=== PATIENT | male | born 1990 | race Caucasian/White ===

== ENCOUNTER 2016-07-30 20:33 | Emergency (ER) | payer MEDICAID, OTHER ==
[~2016-07-30] VITALS: Ht 167.6 cm; Wt 81.6 kg
[~2016-07-30 20:33] MED LIST: ALBU-136 IH
[2016-07-30 20:46] VITALS: BP 155/109
--- NOTE | 2016-07-30 21:39 | NUR ---
PT TAKEN TO OF
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
--- NOTE | 2016-07-30 21:39 | NUR ---
Dr. Chapman evaluating patient
--- NOTE | 2016-07-30 21:43 | NUR ---
PT TAKEN TO XRAY
[2016-07-30] MEDS ORDERED: KETOROLAC 30 MG/ML VIAL IM ONE (21:45)
--- NOTE | 2016-07-30 21:55 | NUR ---
PT TAKEN TO BED 7
[2016-07-30] MEDS ORDERED: ALBUTEROL SULFATE/IPRATROPIU 3 ML SOL IH ONE ×2 (22:10→22:30)
--- NOTE | 2016-07-30 22:15 | NUR ---
Respiratory Therapist at bedside for respiratory intervention
[2016-07-30] MEDS ORDERED: predniSONE 20 MG TAB PO ONE (22:30)
--- NOTE | 2016-07-30 22:32 | NUR ---
Ultrasound at bedside.
--- NOTE | 2016-07-30 22:36 | NUR ---
X-Ray at bedside.
[2016-07-30 23:14] VITALS: BP 120/89
--- NOTE | 2016-07-30 23:14 | NUR ---
Patient discharged with v/s stable. Written and verbal after care instructions given and explained. Patient alert, oriented and verbalized understanding of instructions. Ambulatory with steady gait. All questions addressed prior to discharge. ID band removed. Patient advised to follow up with PMD THIS WK OR RETURN TO ER IF CONDITION WORSENS. Rx of ALBUTEROL, NAPROSYN, PREDNISONE, KEFLEX, AND TYLENOL WITH CODEINE given. Patient educated on indication of medication including possible reaction and side effects. Opportunity to ask questions provided and answered.
== END 2016-07-30 23:14 | disposition home or self-care (01) ==
LOC: MED 20:33
DX: S83.92XA Sprain of unspecified site of left knee, initial encounter (principal); L03.113 Cellulitis of right upper limb; J45.901 Unspecified asthma with (acute) exacerbation; X58.XXXA Exposure to other specified factors, initial encounter; Y93.72 Activity, wrestling; Y92.89 Other specified places as the place of occurrence of the external cause; Y99.8 Other external cause status
CPT/HCPCS: 29505; 73562; 73610; 93971; 94640; 96372; 99285; J1885; J7512; J7620; Q0092

== ENCOUNTER 2016-10-21 14:48 | Emergency (ER) | payer OTHER ==
[~2016-10-21] VITALS: Ht 165.1 cm; Wt 75.8 kg
[2016-10-21 14:54] VITALS: BP 151/78
--- NOTE | 2016-10-21 19:08 | NUR ---
PATIENT LEFT WITHOUT BEING SEEN BY DR. WRAY. NO FURTHER CARE PROVIDED FOR PATIENT.
== END 2016-10-21 19:08 | disposition left against medical advice (07) ==
LOC: MED 14:48
DX: R21 Rash and other nonspecific skin eruption (principal); J44.9 Chronic obstructive pulmonary disease, unspecified; Z53.21 Procedure and treatment not carried out due to patient leaving prior to being seen by health care provider

== ENCOUNTER 2019-10-15 09:55 | Emergency (ER) | payer OTHER ==
[~2019-10-15] VITALS: Ht 175.3 cm; Wt 89.8 kg
[2019-10-15] MEDS ORDERED: ALBUTEROL SULFATE/IPRATROPIU 3 ML SOL IH ONE ×2 (10:15→10:40)
--- NOTE | 2019-10-15 10:30 | NUR ---
BREATHING TREATMENT DONE AT BEDSIDE
[2019-10-15 10:31] VITALS: BP 106/75
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
[2019-10-15] MEDS ORDERED: DEXAMETHASONE 10 MG/ML VIAL IVP ONE (10:40)
[2019-10-15] MEDS ORDERED: HYDROcodone/APAP 10/325 MG 1 TAB TAB PO ONE (10:45)
[2019-10-15] MEDS ORDERED: ALPRAZolam 0.5 MG TAB PO ONE (11:50)
[2019-10-15 12:45] VITALS: BP 101/67
--- NOTE | 2019-10-15 12:45 | NUR ---
Patient discharged with v/s stable. Written and verbal after care instructions given and explained. Patient alert, oriented and verbalized understanding of instructions. Ambulatory with steady gait. All questions addressed prior to discharge. ID band removed. Patient advised to follow up with PMD. Rx of aerochamber, albuterl,azithromycin,QVAR given. Patient educated on indication of medication including possible reaction and side effects. Opportunity to ask questions provided and answered.
== END 2019-10-15 12:45 | disposition home or self-care (01) ==
LOC: MED 09:55
DX: J45.901 Unspecified asthma with (acute) exacerbation (principal); F41.9 Anxiety disorder, unspecified
CPT/HCPCS: 71045; 94640; 96374; 99284; J1100; Q0092

== ENCOUNTER 2020-09-29 14:15 | Inpatient (IN) | payer OTHER, SELFPAY ==
[~2020-09-29] VITALS: Ht 170.2 cm; Wt 81.6 kg
[~2020-09-29 14:15] MED LIST changes: +ALBU-118 IH; -ALBU-136 IH; +ALBU0.0912 INH; +LEVO500T98 PO; +PRED20TA5 PO
[2020-09-29 14:19] VITALS: BP 144/96
[2020-09-29] MEDS ORDERED: ALBUTEROL SULFATE/IPRATROPIU 3 ML SOL IH ONE (14:20)
[2020-09-29] MEDS ORDERED: methylPREDNISolone SS 125 MG/2 ML VIAL IVP ONE (14:20)
[2020-09-29 15:00] LABS: BASOPHILS # (AUTO) 0.1 K/uL (0.00-0.22); BASOPHILS % (AUTO) 0.8 % (0.0-2.0); EOSINOPHILS % (AUTO) 0.2 % (0.0-4.0); HEMATOCRIT 51.7 % (36-52); HEMOGLOBIN 16.8 g/dL (12.0-18.0); LYMPHOCYTES # (AUTO) 1.1 K/uL (2.0-11.5); LYMPHOCYTES % (AUTO) 10.8 % (20.5-51.1); MEAN CORPUSCULAR HEMOGLOBIN 30 pg (27-31); MEAN CORPUSCULAR HGB CONC 32 g/dL (33-37); MEAN CORPUSCULAR VOLUME 91.5 fL (80-94); MONOCYTES # (AUTO) 0.5 K/uL (0.8-1.0); MONOCYTES % (AUTO) 4.5 % (1.7-9.3); NEUTROPHILS # (AUTO) 8.5 K/uL (1.8-7.7); NEUTROPHILS % (AUTO) 83.7 % (42.2-75.2); PLATELET COUNT (AUTO) 136 K/uL (140-450); RED BLOOD CELL COUNT(AUTO) 5.65 MIL/uL (4.20-6.10); RED CELL DISTRIBUTION WIDTH 16.2 % (11.6-13.7); WHITE BLOOD COUNT (AUTO) 10.2 K/uL (4.8-10.8)
[2020-09-29 15:13] LABS: ALBUMIN 3.7 g/dL (3.4-5.0); ANION GAP 8.2 (8-16); CREATININE 1.9 mg/dL (0.6-1.3); POTASSIUM 4.2 mmol/L (3.5-5.1); TOTAL BILIRUBIN 0.6 mg/dL (0.0-1.0)
[2020-09-29] MEDS ORDERED: MAG SULF 2000 MG/WATER PREMIX 50 ML IV ONE (15:50)
[2020-09-29] MEDS ORDERED: NACL 0.9% 500 ML IV ONE (16:15)
[2020-09-29] MEDS ORDERED: ASPIRIN 81 MG TAB.CHEW PO SCH (16:25)
[2020-09-29] MEDS ORDERED: LORazepam 2 MG/ML VIAL IVP PRN (17:20)
[2020-09-29] MEDS ORDERED: MORPHINE SULFATE 2 MG/ML SYR IVP PRN (17:20)
[2020-09-29] MEDS ORDERED: HYDROcodone/APAP 5/325 MG 1 TAB TAB PO PRN (17:20)
[2020-09-29] MEDS ORDERED: ONDANSETRON 4 MG/2 ML VIAL IVP PRN (17:20)
[2020-09-29] MEDS ORDERED: NITROGLYCERIN 0.4 MG TAB SL PRN (17:20)
[2020-09-29] MEDS ORDERED: ACETAMINOPHEN 325 MG TAB PO PRN (17:20)
[2020-09-29] MEDS ORDERED: ZOLPIDEM 5 MG TAB PO PRN (17:20)
[2020-09-29 18:03] VITALS: BP 137/66
[2020-09-29 18:06] LABS: CREATINE KINASE MB 10.9 ng/mL (0-3.6)
[2020-09-29 18:31] LABS: BARBITURATE, URINE NEGATIVE ng/ml (NEG <=200); BENZODIAZEPINE, URINE POSITIVE ng/mL (NEG <=200); CANNABINOID, URINE NEGATIVE ng/mL (NEG <=50); COCAINE, URINE NEGATIVE ng/mL (NEG <=300); OPIATE, URINE NEGATIVE ng/mL (NEG <=2000); PHENCYCLIDINE SCREEN,URINE NEGATIVE ng/mL (NEG <=25)
[2020-09-29] MEDS: SIMVASTATIN 20 MG TAB PO SCH (20:23)
[2020-09-29] MEDS: METOPROLOL 25 MG TAB PO SCH (20:23)
[2020-09-30] VITALS: BP 130/77
[2020-09-30 03:04] LABS: CREATINE KINASE MB 15.8 ng/mL (0-3.6)
[2020-09-30 04:00] VITALS: BP 122/68
[2020-09-30 06:16] LABS: BASOPHILS % (AUTO) 0.1 % (0.0-2.0); HEMATOCRIT 50.4 % (36-52); LYMPHOCYTES % (AUTO) 7.8 % (20.5-51.1); MEAN CORPUSCULAR HEMOGLOBIN 30 pg (27-31); MEAN CORPUSCULAR HGB CONC 32 g/dL (33-37); MEAN CORPUSCULAR VOLUME 92.8 fL (80-94); MONOCYTES # (AUTO) 0.6 K/uL (0.8-1.0); MONOCYTES % (AUTO) 4.8 % (1.7-9.3); NEUTROPHILS # (AUTO) 11.6 K/uL (1.8-7.7); NEUTROPHILS % (AUTO) 87.3 % (42.2-75.2); PLATELET COUNT (AUTO) 138 K/uL (140-450); RED BLOOD CELL COUNT(AUTO) 5.43 MIL/uL (4.20-6.10); WHITE BLOOD COUNT (AUTO) 13.3 K/uL (4.8-10.8)
[2020-09-30 06:31] LABS: ALBUMIN 3.6 g/dL (3.4-5.0); ANION GAP 5.8 (8-16); CARBON DIOXIDE 35.2 mmol/L (21-32); CREATININE 1.4 mg/dL (0.6-1.3); MAGNESIUM 2.5 mg/dL (1.8-2.4); TOTAL BILIRUBIN 0.6 mg/dL (0.0-1.0)
[2020-09-30 08:00] VITALS: BP 129/75
[2020-09-30] MEDS: lisinopriL 10 MG TAB PO SCH (09:34)
[2020-09-30] MEDS: METOPROLOL 25 MG TAB PO SCH ×2 (09:34→20:40)
[2020-09-30] MEDS: DOCUSATE SODIUM 100 MG GELCAP PO SCH (09:35)
[2020-09-30] MEDS: ASPIRIN 81 MG TAB.CHEW PO SCH (09:35)
[2020-09-30] MEDS: ENOXAPARIN 40 MG/0.4 ML SYR SUBQ SCH (09:36)
[2020-09-30 12:00] VITALS: BP 130/67
[2020-09-30] MEDS ORDERED: ALBUTEROL SULFATE/IPRATROPIU 3 ML SOL IH PRN (13:45)
[2020-09-30 16:00] VITALS: BP 135/72
[2020-09-30] MEDS ORDERED: FUROSEMIDE 40 MG/4 ML VIAL IVP ONE (17:05)
[2020-09-30] MEDS: ALBUTEROL SULFATE/IPRATROPIU 3 ML SOL IH SCH (19:10)
[2020-09-30 20:00] VITALS: BP 124/67
[2020-09-30] MEDS: FAMOTIDINE 20 MG TAB PO SCH (20:40)
[2020-09-30] MEDS: SIMVASTATIN 20 MG TAB PO SCH (20:40)
[2020-09-30] MEDS: NAPROXEN 500 MG TAB PO SCH (20:41)
[2020-09-30] MEDS ORDERED: NAPROXEN 375 MG TAB PO SCH (21:00)
[2020-10-01] VITALS (7 sets, daily range): BP systolic 107–153; BP diastolic 60–95
[2020-10-01] MEDS: ALBUTEROL SULFATE/IPRATROPIU 3 ML SOL IH SCH ×4 (01:53→19:29)
[2020-10-01] MEDS ORDERED: predniSONE 20 MG TAB PO SCH (09:00)
[2020-10-01] MEDS: ENOXAPARIN 40 MG/0.4 ML SYR SUBQ SCH (09:37)
[2020-10-01] MEDS: DOCUSATE SODIUM 100 MG GELCAP PO SCH (09:39)
[2020-10-01] MEDS: lisinopriL 10 MG TAB PO SCH (09:43)
[2020-10-01] MEDS: ASPIRIN 81 MG TAB.CHEW PO SCH (09:44)
[2020-10-01] MEDS: FAMOTIDINE 20 MG TAB PO SCH ×2 (09:44→21:22)
[2020-10-01] MEDS: METOPROLOL 25 MG TAB PO SCH ×2 (09:44→21:22)
[2020-10-01] MEDS: NAPROXEN 500 MG TAB PO SCH ×2 (09:45→21:22)
[2020-10-01] MEDS ORDERED: FAMO20TA13 PO (18:33)
[2020-10-01] MEDS ORDERED: LOV40I SUBQ (18:33)
[2020-10-01] MEDS ORDERED: LISI10TA30 PO (18:33)
[2020-10-01] MEDS ORDERED: NITR0.4T1 SL (18:33)
[2020-10-01] MEDS ORDERED: SIMV-30 PO (18:33)
[2020-10-01] MEDS ORDERED: METO25TA PO (18:33)
[2020-10-01] MEDS: SIMVASTATIN 20 MG TAB PO SCH (21:22)
== END 2020-10-01 22:30 | disposition short-term general hospital (02) | DRG 141 ==
LOC: MED 14:15 → MTU 17:22 → OBSVTOIN 10-01 12:31
PROVIDERS: ADMIT Hospitalist; ATTEND Hospitalist
DX: J45.901 Unspecified asthma with (acute) exacerbation (principal); I21.A1 Myocardial infarction type 2; J96.01 Acute respiratory failure with hypoxia; J96.02 Acute respiratory failure with hypercapnia; J44.1 Chronic obstructive pulmonary disease with (acute) exacerbation; I07.1 Rheumatic tricuspid insufficiency; I27.21 Secondary pulmonary arterial hypertension; E66.9 Obesity, unspecified; F17.210 Nicotine dependence, cigarettes, uncomplicated; Z20.822 Contact with and (suspected) exposure to COVID-19; G47.30 Sleep apnea, unspecified; Z79.899 Other long term (current) drug therapy; Z71.6 Tobacco abuse counseling; Z68.28 Body mass index [BMI] 28.0-28.9, adult; Z59.0 Homelessness
CPT/HCPCS: 96365; 96366; 96375; 99291; G0378; 36415; 36600; 71045; 73660; 80053; 80305; 82550; 82553; 82803; 83735; 83880; 84484; 85025; 85379; 87081; 93005; 94640; J1650; J1940; J2930; J3475; J7512

== ENCOUNTER 2022-11-22 11:32 | Inpatient (IN) | payer MEDICAID, OTHER ==
[~2022-11-22] VITALS: Ht 177.8 cm; Wt 82.6 kg
[2022-11-22] VITALS (8 sets, daily range): BP systolic 100–122; BP diastolic 60–65; PULSE 65–89; RESP 16–26; TEMP 98.2–98.3; O2SAT 84–98
[~2022-11-22 11:32] MED LIST changes: +BECL10.62 INH; +FAMO20TA13 PO; +LEVO-481 PO; -LEVO500T98 PO; +LISI10TA30 PO; +LOV40I SUBQ; +METO25TA PO; +NICO21TD TD; +SILD20TA PO; +SIMV-30 PO
[2022-11-22] MEDS ORDERED: IPRATROPIUM 0.02% 0.5 MG/2.5 ML NEBU INH ONE (11:45)
[2022-11-22] MEDS ORDERED: ALBUTEROL 0.083% 2.5 MG/3 ML NEBU INH ONE (11:45)
[2022-11-22] MEDS ORDERED: methylPREDNISolone SS 125 MG/2 ML VIAL IVP ONE (11:50)
[2022-11-22] MEDS ORDERED: NACL 0.9% 1,000 ML IV ONE (11:50)
[2022-11-22 12:09] LABS: BASOPHILS % (AUTO) 0.3 % (0.0-2.0); EOSINOPHILS # (AUTO) 0.7 K/uL (0-0.4); EOSINOPHILS % (AUTO) 10.4 % (0.0-4.0); HEMATOCRIT 47.6 % (36-52); HEMOGLOBIN 15.6 g/dL (12.0-18.0); LYMPHOCYTES # (AUTO) 1.9 K/uL (2.0-11.5); LYMPHOCYTES % (AUTO) 26.5 % (20.5-51.1); MEAN CORPUSCULAR HEMOGLOBIN 29 pg (27-31); MEAN CORPUSCULAR HGB CONC 33 g/dL (33-37); MEAN CORPUSCULAR VOLUME 87.4 fL (80-94); MONOCYTES # (AUTO) 0.6 K/uL (0.8-1.0); MONOCYTES % (AUTO) 8.3 % (1.7-9.3); NEUTROPHILS # (AUTO) 3.8 K/uL (1.8-7.7); NEUTROPHILS % (AUTO) 54.5 % (42.2-75.2); PLATELET COUNT (AUTO) 229 K/uL (140-450); RED BLOOD CELL COUNT(AUTO) 5.45 MIL/uL (4.20-6.10); RED CELL DISTRIBUTION WIDTH 18.1 % (11.6-13.7)
[2022-11-22] MEDS ORDERED: AZITHROMYCIN 500 MG in DEXTROSE 5% 250 ML IV ONE (12:35)
[2022-11-22] MEDS ORDERED: ALBUTEROL SULFATE/IPRATROPIU 3 ML SOL IH ONE (12:35)
[2022-11-22 12:38] LABS: ALBUMIN 3.2 g/dL (3.4-5.0); ANION GAP 7.9 (8-16); CALCIUM 8.7 mg/dL (8.5-10.1); CARBON DIOXIDE 35.9 mmol/L (21-32); CREATININE 1.1 mg/dL (0.6-1.3); POTASSIUM 3.8 mmol/L (3.5-5.1); TOTAL BILIRUBIN 0.4 mg/dL (0.0-1.0); TOTAL PROTEIN, SERUM 7.7 g/dL (6.4-8.2)
[2022-11-22] MEDS ORDERED: AZITHROMYCIN 500 MG INJ VIAL IV ONE (14:29)
[2022-11-22] MEDS ORDERED: cefTRIAXone 1,000 MG VIAL ONE (14:29)
[2022-11-22] MEDS ORDERED: MORPHINE SULFATE 2 MG/ML SYR IVP PRN (15:25)
[2022-11-22] MEDS ORDERED: NITROGLYCERIN 0.4 MG TAB SL PRN (15:25)
[2022-11-22 15:34] LABS: FLU A ANTIGEN negative (NEGATIVE); FLU B ANTIGEN NEGATIVE (NEGATIVE)
[2022-11-22] MEDS ORDERED: ALBUTEROL SULFATE/IPRATROPIU 3 ML SOL IH PRN (17:05)
[2022-11-22] MEDS ORDERED: methylPREDNISolone SS 125 MG/2 ML VIAL IVP SCH (17:05)
[2022-11-22] MEDS ORDERED: MAG SULF 2000 MG/WATER PREMIX 50 ML IV PRN (17:10)
[2022-11-22] MEDS ORDERED: POTASSIUM CHLORIDE 10 MEQ TABER PO PRN (17:10)
[2022-11-22] MEDS ORDERED: HYDROcodone/APAP 7.5/325 MG 1 TAB PO PRN (17:15)
[2022-11-22] MEDS ORDERED: ONDANSETRON 4 MG/2 ML VIAL IVP PRN (17:15)
[2022-11-22] MEDS ORDERED: ACETAMINOPHEN 325 MG TAB PO PRN (17:15)
[2022-11-22 17:36] LABS: INR 0.99 (0.8-1.2); PARTIAL THROMBOPLASTIN TIME 28.3 secs (22-35.6); PROTHROMBIN TIME 10.4 secs (10.8-13.4)
[2022-11-22 17:45] LABS: LACTIC ACID 1.4 mmol/L (0.4-2.0)
[2022-11-22] MEDS ORDERED: ALBUTEROL 0.083% 2.5 MG/3 ML NEBU INH PRN (17:55)
[2022-11-22 18:46] LABS: CHOL/HDL RATIO 3.7 (1-4.5); FREE T4 (FREE THYROXINE) 1.1 ng/dL (0.76-1.46); THYROID STIMULATING HORMONE 0.78 uIU/mL (0.34-3.74)
[2022-11-22] MEDS: ALBUTEROL SULFATE/IPRATROPIU 3 ML SOL IH SCH (18:46)
[2022-11-22] MEDS ORDERED: IPRATROPIUM 0.02% 0.5 MG/2.5 ML NEBU INH SCH (19:00)
[2022-11-22] MEDS ORDERED: MORPHINE SULFATE 4 MG/ML SYR IVP PRN (19:45)
[2022-11-22] MEDS ORDERED: FAMOTIDINE 20 MG TAB PO SCH (21:00)
[2022-11-22] MEDS ORDERED: SIMVASTATIN 20 MG TAB PO SCH (21:00)
[2022-11-22] MEDS ORDERED: PIPERACILLIN/TAZOBACTAM 3.375 GM VIAL IV ONE (21:57)
[2022-11-22] MEDS: PIPERACILLIN/TAZOBACTAM 3.375 GM in DEXTROSE 5% 50 ML IV SCH (22:05)
[2022-11-22] MEDS: NACL 0.9% 1,000 ML IV SCH (22:05)
[2022-11-22] MEDS: methylPREDNISolone SS 125 MG/2 ML VIAL IVP SCH (22:06)
[2022-11-22] MEDS ORDERED: MELATONIN 3 MG TAB PO PRN ×2 (22:20→22:45)
[2022-11-22] MEDS: METOPROLOL 25 MG TAB PO SCH (22:20)
[2022-11-22] MEDS: DOCUSATE SODIUM 100 MG GELCAP PO SCH (23:40)
[2022-11-23] VITALS (9 sets, daily range): BP systolic 96–99; BP diastolic 40–61; PULSE 46–80; RESP 16–20; TEMP 96.6–98.6; O2SAT 93–100
[2022-11-23 03:00] LABS: APPEARANCE,URINE CLEAR (CLEAR); BILIRUBIN,URINE NEGATIVE (NEGATIVE); BLOOD, URINE NEGATIVE (NEGATIVE); COLOR,URINE YELLOW (YELLOW); LEUKOCYTE ESTERASE ,URINE NEGATIVE (NEGATIVE); NITRITE, URINE NEGATIVE (NEGATIVE); PROTEIN,URINE NEGATIVE (NEGATIVE); UGLUCOSE TRACE (NEGATIVE); UROBILINOGEN,URINE 0.2 EU/dL (0.2 - 1)
[2022-11-23 04:42] LABS: AMPHETAMINE, URINE NEGATIVE ng/ml (NEG <=1000); BARBITURATE, URINE NEGATIVE ng/ml (NEG <=200); BENZODIAZEPINE, URINE POSITIVE ng/mL (NEG <=200); CANNABINOID, URINE NEGATIVE ng/mL (NEG <=50); COCAINE, URINE NEGATIVE ng/mL (NEG <=300); OPIATE, URINE POSITIVE ng/mL (NEG <=2000); PHENCYCLIDINE SCREEN,URINE NEGATIVE ng/mL (NEG <=25)
[2022-11-23] MEDS ORDERED: PIPERACILLIN/TAZOBACTAM 3.375 GM VIAL IV ONE (05:29)
[2022-11-23] MEDS: NACL 0.9% 1,000 ML IV SCH ×2 (05:32→15:32)
[2022-11-23] MEDS: PIPERACILLIN/TAZOBACTAM 3.375 GM in DEXTROSE 5% 50 ML IV SCH ×2 (05:44→14:13)
[2022-11-23] MEDS: methylPREDNISolone SS 125 MG/2 ML VIAL IVP SCH ×2 (05:44→15:01)
[2022-11-23] MEDS ORDERED: KETOROLAC 15 MG/ML VIAL IM PRN (05:55)
[2022-11-23 06:25] LABS: BASOPHILS % (AUTO) 0.1 % (0.0-2.0); HEMATOCRIT 43.4 % (36-52); HEMOGLOBIN 14.1 g/dL (12.0-18.0); LYMPHOCYTES # (AUTO) 0.8 K/uL (2.0-11.5); LYMPHOCYTES % (AUTO) 6.4 % (20.5-51.1); MEAN CORPUSCULAR HEMOGLOBIN 28 pg (27-31); MEAN CORPUSCULAR HGB CONC 33 g/dL (33-37); MEAN CORPUSCULAR VOLUME 86.9 fL (80-94); MONOCYTES # (AUTO) 0.2 K/uL (0.8-1.0); MONOCYTES % (AUTO) 1.6 % (1.7-9.3); NEUTROPHILS % (AUTO) 91.9 % (42.2-75.2); PLATELET COUNT (AUTO) 196 K/uL (140-450); RED CELL DISTRIBUTION WIDTH 17.8 % (11.6-13.7); WHITE BLOOD COUNT (AUTO) 13.1 K/uL (4.8-10.8)
[2022-11-23 06:26] LABS: PHOSPHORUS 1.7 mg/dL (2.5-4.9)
[2022-11-23 06:31] LABS: ANION GAP 11.1 (8-16); CALCIUM 8.8 mg/dL (8.5-10.1); CARBON DIOXIDE 32.4 mmol/L (21-32); POTASSIUM 4.5 mmol/L (3.5-5.1)
[2022-11-23] MEDS: ALBUTEROL SULFATE/IPRATROPIU 3 ML SOL IH SCH ×2 (07:00→12:39)
[2022-11-23] MEDS ORDERED: PANTOPRAZOLE 40 MG INJ VIAL IVP SCH (09:00)
[2022-11-23] MEDS: DOCUSATE SODIUM 100 MG GELCAP PO SCH (09:00)
[2022-11-23] MEDS: METOPROLOL 25 MG TAB PO SCH (09:00)
[2022-11-23] MEDS ORDERED: lisinopriL 10 MG TAB PO SCH (09:00)
[2022-11-23] MEDS: SILDENAFIL 20 MG TAB PO SCH ×3 (09:00→17:00)
[2022-11-23] MEDS ORDERED: LEVO750T75 PO (17:31)
[2022-11-23] MEDS ORDERED: methylPREDNISolone SS 40 MG/ML VIAL IVP SCH (21:00)
== END 2022-11-23 18:19 | disposition home or self-care (01) | DRG 139 ==
LOC: MED 11:32 → MTU 14:05
DX: J18.9 Pneumonia, unspecified organism (principal); J96.01 Acute respiratory failure with hypoxia; E44.1 Mild protein-calorie malnutrition; J45.901 Unspecified asthma with (acute) exacerbation; I27.20 Pulmonary hypertension, unspecified; B36.0 Pityriasis versicolor; G89.29 Other chronic pain; Z20.822 Contact with and (suspected) exposure to COVID-19; M54.50 Low back pain, unspecified; F11.90 Opioid use, unspecified, uncomplicated; E66.9 Obesity, unspecified; F17.210 Nicotine dependence, cigarettes, uncomplicated; Z88.8 Allergy status to other drugs, medicaments and biological substances; Z79.899 Other long term (current) drug therapy; Z68.26 Body mass index [BMI] 26.0-26.9, adult
CPT/HCPCS: 36415; 71045; 80048; 80053; 80305; 81003; 82140; 82150; 83036; 83605; 83690; 83735; 83880; 84100; 84439; 84443; 84484; 85025; 85610; 85730; 87040; 87081; 87086; 93005; 94640; 96374; 96375; 99291; C9113; J0456; J0696; J1644; J1885; J2270; J2543; J2930; J7060; J7613; J7644

== ENCOUNTER 2022-12-26 12:10 | Inpatient (IN) | payer MEDICAID ==
[~2022-12-26] VITALS: Ht 170.2 cm; Wt 81.6 kg
[2022-12-26] VITALS (8 sets, daily range): BP systolic 101–112; BP diastolic 65–84; PULSE 60–94; RESP 18–20; TEMP 96.9–98.4; O2SAT 88–99
[~2022-12-26 12:10] MED LIST changes: +LEVO750T75 PO
[2022-12-26] MEDS ORDERED: ALBUTEROL SULFATE/IPRATROPIU 3 ML SOL IH ONE (12:30)
[2022-12-26] MEDS ORDERED: IPRATROPIUM 0.02% 0.5 MG/2.5 ML NEBU INH ONE (12:30)
[2022-12-26] MEDS ORDERED: ALBUTEROL 0.083% 2.5 MG/3 ML NEBU INH ONE (12:30)
[2022-12-26] MEDS ORDERED: predniSONE 20 MG TAB PO ONE (13:05)
[2022-12-26 13:40] LABS: BASOPHILS # (AUTO) 0.1 K/uL (0.00-0.22); BASOPHILS % (AUTO) 0.7 % (0.0-2.0); EOSINOPHILS # (AUTO) 0.3 K/uL (0-0.4); EOSINOPHILS % (AUTO) 2.5 % (0.0-4.0); HEMATOCRIT 48.8 % (36-52); LYMPHOCYTES % (AUTO) 22.6 % (20.5-51.1); MEAN CORPUSCULAR HEMOGLOBIN 29 pg (27-31); MEAN CORPUSCULAR HGB CONC 33 g/dL (33-37); MEAN CORPUSCULAR VOLUME 89.3 fL (80-94); MONOCYTES # (AUTO) 0.9 K/uL (0.8-1.0); MONOCYTES % (AUTO) 7.2 % (1.7-9.3); NEUTROPHILS # (AUTO) 8.8 K/uL (1.8-7.7); PLATELET COUNT (AUTO) 230 K/uL (140-450); RED BLOOD CELL COUNT(AUTO) 5.47 MIL/uL (4.20-6.10); RED CELL DISTRIBUTION WIDTH 15.2 % (11.6-13.7); WHITE BLOOD COUNT (AUTO) 13.1 K/uL (4.8-10.8)
[2022-12-26 13:50] LABS: ANION GAP 8.3 (8-16); CARBON DIOXIDE 35.4 mmol/L (21-32); POTASSIUM 3.7 mmol/L (3.5-5.1)
[2022-12-26] MEDS ORDERED: AZITHROMYCIN 500 MG in DEXTROSE 5% 250 ML IV ONE (14:20)
[2022-12-26] MEDS ORDERED: predniSONE 20 MG TAB ONE (14:25)
[2022-12-26] MEDS ORDERED: cefTRIAXone 1,000 MG VIAL ONE (15:08)
[2022-12-26] MEDS ORDERED: AZITHROMYCIN 500 MG INJ VIAL IV ONE (15:08)
[2022-12-26] MEDS ORDERED: METH-1550 PO (15:22)
[2022-12-26] MEDS ORDERED: DOCUSATE SODIUM 100 MG GELCAP PO PRN (15:30)
[2022-12-26] MEDS ORDERED: ONDANSETRON 4 MG/2 ML VIAL IM/IVP PRN (15:30)
[2022-12-26] MEDS ORDERED: HYDROcodone/APAP 7.5/325 MG 1 TAB PO PRN (15:30)
[2022-12-26] MEDS ORDERED: ZOLPIDEM 5 MG TAB PO PRN (15:30)
[2022-12-26] MEDS ORDERED: guaiFENesin DM 200/20 MG-10 ML 10 ML UDC PO PRN (15:30)
[2022-12-26] MEDS ORDERED: POTASSIUM CHLORIDE 10 MEQ TABER PO PRN (15:30)
[2022-12-26] MEDS ORDERED: ACETAMINOPHEN 325 MG TAB PO PRN (15:30)
[2022-12-26] MEDS ORDERED: ALBUTEROL SULFATE/IPRATROPIU 3 ML SOL IH PRN (15:30)
[2022-12-26] MEDS: NACL 0.9% 1,000 ML IV SCH (16:11)
[2022-12-26 16:12] LABS: INR 1.05 (0.8-1.2); PARTIAL THROMBOPLASTIN TIME 27.7 secs (22-35.6)
[2022-12-26 16:24] LABS: ALBUMIN 3.3 g/dL (3.4-5.0); ANION GAP 7.7 (8-16); CALCIUM 8.5 mg/dL (8.5-10.1); CARBON DIOXIDE 34.9 mmol/L (21-32); CHOL/HDL RATIO 3.2 (1-4.5); FREE T4 (FREE THYROXINE) 1.14 ng/dL (0.76-1.46); PHOSPHORUS 3.9 mg/dL (2.5-4.9); POTASSIUM 3.6 mmol/L (3.5-5.1); THYROID STIMULATING HORMONE 2.14 uIU/mL (0.34-3.74); TOTAL BILIRUBIN 0.4 mg/dL (0.0-1.0); TOTAL PROTEIN, SERUM 7.5 g/dL (6.4-8.2)
[2022-12-26] MEDS: ALBUTEROL SULFATE/IPRATROPIU 3 ML SOL IH SCH (19:00)
[2022-12-26] MEDS ORDERED: DOXYCYCLINE 100 MG VIAL IV ONE (20:11)
[2022-12-26] MEDS: DOXYCYCLINE 100 MG in DEXTROSE 5% 100 ML IV SCH (21:34)
[2022-12-27] VITALS (14 sets, daily range): BP systolic 98–110; BP diastolic 52–64; PULSE 49–79; RESP 16–20; TEMP 97–98.5; O2SAT 90–98
[2022-12-27 05:21] LABS: BASOPHILS % (AUTO) 0.4 % (0.0-2.0); EOSINOPHILS # (AUTO) 0.1 K/uL (0-0.4); EOSINOPHILS % (AUTO) 0.5 % (0.0-4.0); HEMATOCRIT 46.2 % (36-52); HEMOGLOBIN 14.9 g/dL (12.0-18.0); LYMPHOCYTES # (AUTO) 1.4 K/uL (2.0-11.5); LYMPHOCYTES % (AUTO) 12.9 % (20.5-51.1); MEAN CORPUSCULAR HEMOGLOBIN 29 pg (27-31); MEAN CORPUSCULAR HGB CONC 32 g/dL (33-37); MEAN CORPUSCULAR VOLUME 89.8 fL (80-94); MONOCYTES # (AUTO) 0.9 K/uL (0.8-1.0); MONOCYTES % (AUTO) 7.8 % (1.7-9.3); NEUTROPHILS # (AUTO) 8.8 K/uL (1.8-7.7); NEUTROPHILS % (AUTO) 78.4 % (42.2-75.2); PLATELET COUNT (AUTO) 208 K/uL (140-450); RED BLOOD CELL COUNT(AUTO) 5.14 MIL/uL (4.20-6.10); RED CELL DISTRIBUTION WIDTH 14.8 % (11.6-13.7); WHITE BLOOD COUNT (AUTO) 11.2 K/uL (4.8-10.8)
[2022-12-27 05:35] LABS: ANION GAP 6.6 (8-16); CALCIUM 9.1 mg/dL (8.5-10.1); CARBON DIOXIDE 36.8 mmol/L (21-32); CREATININE 0.9 mg/dL (0.6-1.3); POTASSIUM 4.4 mmol/L (3.5-5.1)
[2022-12-27] MEDS: ALBUTEROL SULFATE/IPRATROPIU 3 ML SOL IH SCH ×3 (07:15→18:43)
[2022-12-27 08:08] LABS: T4 (THYROXINE) 8.9 ug/dL (4.5-12.0)
[2022-12-27] MEDS: PANTOPRAZOLE 40 MG TABEC PO SCH (08:18)
[2022-12-27] MEDS: NACL 0.9% 1,000 ML IV SCH (08:19)
[2022-12-27] MEDS: DOXYCYCLINE 100 MG in DEXTROSE 5% 100 ML IV SCH ×2 (09:21→20:47)
[2022-12-27] MEDS: methylPREDNISolone SS 40 MG/ML VIAL IVP SCH ×2 (12:19→20:49)
[2022-12-27 15:22] LABS: HEMOGLOBIN A1C 5.8 % (4.8-5.6)
[2022-12-28] VITALS: BP 103/63; PULSE 60; PULSE 61; RESP 18; TEMP 97.8; O2SAT 91
[2022-12-28] MEDS: NACL 0.9% 1,000 ML IV SCH (00:50)
[2022-12-28] MEDS: ALBUTEROL SULFATE/IPRATROPIU 3 ML SOL IH SCH ×2 (01:00→07:00)
[2022-12-28 04:00] VITALS: BP 109/59; PULSE 47; PULSE 50; RESP 18; TEMP 97.8; O2SAT 94
[2022-12-28 05:23] LABS: BASOPHILS # (AUTO) 0.1 K/uL (0.00-0.22); BASOPHILS % (AUTO) 1.3 % (0.0-2.0); HEMATOCRIT 45.2 % (36-52); HEMOGLOBIN 14.8 g/dL (12.0-18.0); LYMPHOCYTES # (AUTO) 0.6 K/uL (2.0-11.5); LYMPHOCYTES % (AUTO) 5.8 % (20.5-51.1); MEAN CORPUSCULAR HEMOGLOBIN 29 pg (27-31); MEAN CORPUSCULAR HGB CONC 33 g/dL (33-37); MEAN CORPUSCULAR VOLUME 88.9 fL (80-94); MONOCYTES # (AUTO) 0.3 K/uL (0.8-1.0); MONOCYTES % (AUTO) 2.6 % (1.7-9.3); NEUTROPHILS # (AUTO) 9.5 K/uL (1.8-7.7); NEUTROPHILS % (AUTO) 90.3 % (42.2-75.2); PLATELET COUNT (AUTO) 209 K/uL (140-450); RED BLOOD CELL COUNT(AUTO) 5.08 MIL/uL (4.20-6.10); WHITE BLOOD COUNT (AUTO) 10.5 K/uL (4.8-10.8)
[2022-12-28] MEDS: methylPREDNISolone SS 40 MG/ML VIAL IVP SCH (05:46)
[2022-12-28 06:06] LABS: ANION GAP 10.2 (8-16); CALCIUM 9.2 mg/dL (8.5-10.1); CARBON DIOXIDE 30.7 mmol/L (21-32); CREATININE 0.8 mg/dL (0.6-1.3); POTASSIUM 4.9 mmol/L (3.5-5.1)
[2022-12-28 07:21] VITALS: O2SAT 93
[2022-12-28 08:00] VITALS: BP 115/61; PULSE 47; RESP 18; TEMP 97.7; O2SAT 95
[2022-12-28] MEDS: DOXYCYCLINE 100 MG in DEXTROSE 5% 100 ML IV SCH (09:00)
[2022-12-28] MEDS: PANTOPRAZOLE 40 MG TABEC PO SCH (09:34)
[2022-12-28] MEDS ORDERED: AMOX-999 PO (09:53)
[2022-12-28] MEDS ORDERED: ALBU6.7H6 IH (09:58)
== END 2022-12-28 11:10 | disposition home or self-care (01) | DRG 139 ==
LOC: MED 12:10 → MTU 15:28
PROVIDERS: ADMIT Family Medicine; ATTEND Family Medicine
DX: J18.9 Pneumonia, unspecified organism (principal); J96.00 Acute respiratory failure, unspecified whether with hypoxia or hypercapnia; J45.901 Unspecified asthma with (acute) exacerbation; Z20.822 Contact with and (suspected) exposure to COVID-19; I27.20 Pulmonary hypertension, unspecified; F17.200 Nicotine dependence, unspecified, uncomplicated; Z88.5 Allergy status to narcotic agent
CPT/HCPCS: 36415; 71045; 71250; 80048; 80053; 82150; 83036; 83690; 83735; 83880; 84100; 84436; 84439; 84443; 84479; 84484; 85025; 85610; 85730; 86738; 87040; 87081; 87449; 94010; 94640; 96365; 96375; 99285; J0456; J0696; J2920; J3490; J7060; J7512; J7613; J7644

== ENCOUNTER 2023-06-26 13:41 | Emergency (ER) | payer MEDICAID ==
[~2023-06-26] VITALS: Ht 170.2 cm; Wt 81.6 kg
[~2023-06-26 13:41] MED LIST changes: -ALBU0.0912 INH; +ALBU6.7H6 IH; +AMOX-999 PO; -BECL10.62 INH; -FAMO20TA13 PO; -LEVO-481 PO; -LEVO750T75 PO; -LISI10TA30 PO; -LOV40I SUBQ; +METH-1550 PO; -METO25TA PO; -NICO21TD TD; -PRED20TA5 PO; -SILD20TA PO; -SIMV-30 PO
[2023-06-26 14:08] VITALS: BP 133/76; PULSE 84; RESP 20; TEMP 98.2; O2SAT 97
[2023-06-26] MEDS: DEXAMETHASONE 10 MG/ML VIAL IM ONE (14:49)
[2023-06-26] MEDS ORDERED: ALBU0.0912 INH (15:10)
[2023-06-26] MEDS ORDERED: BENZ100C6 PO (15:10)
[2023-06-26] MEDS ORDERED: AMOX-1230 PO (15:10)
[2023-06-26] MEDS ORDERED: ALPR1TAB2 PO (15:10)
[2023-06-26] MEDS ORDERED: IBUP-2213 PO (15:10)
[2023-06-26 15:16] VITALS: PULSE 89; RESP 24; O2SAT 95
[2023-06-26] MEDS: ALBUTEROL SULFATE/IPRATROPIU 3 ML SOL IH ONE (15:16)
[2023-06-26] MEDS: ALPRAZolam 0.5 MG TAB PO ONE (15:20)
[2023-06-26 15:53] VITALS: BP 117/60; PULSE 76; RESP 17; TEMP 98.1; O2SAT 94
== END 2023-06-26 15:53 | disposition home or self-care (01) ==
LOC: MED 13:41
DX: S82.832A Other fracture of upper and lower end of left fibula, initial encounter for closed fracture (principal); J18.9 Pneumonia, unspecified organism; I10 Essential (primary) hypertension; J45.909 Unspecified asthma, uncomplicated; Z79.899 Other long term (current) drug therapy; Z88.8 Allergy status to other drugs, medicaments and biological substances; X58.XXXA Exposure to other specified factors, initial encounter; Y92.89 Other specified places as the place of occurrence of the external cause; Y93.89 Activity, other specified; Y99.8 Other external cause status
CPT/HCPCS: 29515; 71045; 73610; 94640; 96372; 99284; J1100

== ENCOUNTER 2023-07-15 10:42 | Emergency (ER) | payer MEDICAID ==
[~2023-07-15] VITALS: Ht 170.2 cm; Wt 86.2 kg
[~2023-07-15 10:42] MED LIST changes: +ALBU0.0912 INH; +ALPR1TAB2 PO; +AMOX-1230 PO; +BENZ100C6 PO; +IBUP-2213 PO
[2023-07-15 10:44] VITALS: BP 130/84; PULSE 105; RESP 20; TEMP 98; O2SAT 100
[2023-07-15 11:39] LABS: BASOPHILS # (AUTO) 0.1 K/uL (0.00-0.22); BASOPHILS % (AUTO) 1.1 % (0.0-2.0); EOSINOPHILS # (AUTO) 0.6 K/uL (0-0.4); EOSINOPHILS % (AUTO) 5.8 % (0.0-4.0); HEMATOCRIT 42.8 % (36-52); HEMOGLOBIN 14.3 g/dL (12.0-18.0); LYMPHOCYTES # (AUTO) 1.5 K/uL (2.0-11.5); LYMPHOCYTES % (AUTO) 15.8 % (20.5-51.1); MEAN CORPUSCULAR HEMOGLOBIN 29 pg (27-31); MEAN CORPUSCULAR HGB CONC 33 g/dL (33-37); MEAN CORPUSCULAR VOLUME 85.9 fL (80-94); MONOCYTES # (AUTO) 0.6 K/uL (0.8-1.0); MONOCYTES % (AUTO) 6.4 % (1.7-9.3); NEUTROPHILS # (AUTO) 6.7 K/uL (1.8-7.7); NEUTROPHILS % (AUTO) 70.9 % (42.2-75.2); PLATELET COUNT (AUTO) 215 K/uL (140-450); RED BLOOD CELL COUNT(AUTO) 4.98 MIL/uL (4.20-6.10); RED CELL DISTRIBUTION WIDTH 13.9 % (11.6-13.7); WHITE BLOOD COUNT (AUTO) 9.5 K/uL (4.8-10.8)
[2023-07-15] MEDS: ALBUTEROL 0.083% 2.5 MG/3 ML NEBU INH ONE (11:42)
[2023-07-15 11:48] VITALS: PULSE 76; RESP 14; O2SAT 98; O2SAT 99
[2023-07-15 11:54] LABS: ANION GAP 9.3 (8-16); CALCIUM 8.4 mg/dL (8.5-10.1); CARBON DIOXIDE 31.3 mmol/L (21-32); CREATININE 0.8 mg/dL (0.6-1.3); POTASSIUM 3.6 mmol/L (3.5-5.1)
[2023-07-15] MEDS: ALPRAZolam 0.5 MG TAB PO ONE (12:19)
[2023-07-15] MEDS: KETOROLAC 30 MG/ML VIAL IM ONE (12:28)
[2023-07-15] MEDS: IBUPROFEN 800 MG TAB PO ONE (12:55)
[2023-07-15] MEDS ORDERED: ALPR1TAB2 PO (13:09)
[2023-07-15] MEDS: diphenhydrAMINE 50 MG/ML VIAL IVP ONE (13:14)
[2023-07-15] MEDS: LORazepam 1 MG TAB PO ONE (16:03)
[2023-07-15] MEDS ORDERED: AZIT250T4 PO (16:05)
[2023-07-15] MEDS ORDERED: AMOX-1230 PO (16:05)
[2023-07-15] MEDS ORDERED: ALBU6.7H6 IH (16:05)
[2023-07-15] MEDS ORDERED: PRED20TA5 PO (16:05)
[2023-07-15] MEDS ORDERED: IBUP-2213 PO (16:13)
[2023-07-15 16:25] VITALS: BP 130/84; PULSE 76; RESP 14; TEMP 98; O2SAT 98
== END 2023-07-15 16:26 | disposition home or self-care (01) ==
LOC: MED 10:42
DX: J45.901 Unspecified asthma with (acute) exacerbation (principal); M79.662 Pain in left lower leg; I11.0 Hypertensive heart disease with heart failure; Z88.8 Allergy status to other drugs, medicaments and biological substances; Z79.899 Other long term (current) drug therapy
CPT/HCPCS: 36415; 71045; 71275; 80048; 85025; 85379; 94640; 96374; 99285; J1200; J7613; Q9967; J1885

== ENCOUNTER 2023-07-31 13:26 | Emergency (ER) | payer MEDICAID ==
[~2023-07-31] VITALS: Ht 170.2 cm; Wt 89.1 kg
[~2023-07-31 13:26] MED LIST changes: +AZIT250T4 PO; +PRED20TA5 PO
[2023-07-31 13:57] VITALS: BP 118/79; PULSE 87; RESP 18; TEMP 97.7; O2SAT 95
[2023-07-31] MEDS ORDERED: ALPR1TAB17 PO (15:27)
== END 2023-07-31 16:05 | disposition home or self-care (01) ==
LOC: MED 13:26
DX: S82.892A Other fracture of left lower leg, initial encounter for closed fracture (principal); F41.9 Anxiety disorder, unspecified; J45.909 Unspecified asthma, uncomplicated; I27.20 Pulmonary hypertension, unspecified; Z79.1 Long term (current) use of non-steroidal anti-inflammatories (NSAID); Z79.899 Other long term (current) drug therapy
CPT/HCPCS: 29515; 73610; 99283